=== PATIENT | male | born 1940 | race Hispanic/Latino ===

== ENCOUNTER 2018-07-15 06:41 | Day surgery (SDC) | payer MEDICARE ==
[2018-07-15 06:56] VITALS: BMI 33.8
[2018-07-15] MEDS ORDERED: Lidocaine PF 2% (5 ml) Inj (For Cardiac Arrhy) ONE (06:57)
[2018-07-15] MEDS ORDERED: Phenylephrine 10 mg/ml Inj ONE (07:17)
[2018-07-15] MEDS ORDERED: Midazolam 2 MG/2 ML VIAL ONE ×2 (07:18→07:34)
[2018-07-15] MEDS ORDERED: Iohexol 350mgl/ml 50 ML ONE (07:18)
[2018-07-15] MEDS ORDERED: Iodixanol 320 MG/ML 200 ML BOTTLE IV ONE (07:18)
[2018-07-15] MEDS ORDERED: Nitroglycerin 50mg in D5W 0 MG/0 ML BOTTLE IV ONE (07:18)
[2018-07-15] MEDS ORDERED: Iodixanol 320 MG/ML 100 ML BOTTLE IV ONE (07:18)
[2018-07-15] MEDS ORDERED: Sodium Chloride 0.9% 1,000 ML IV SCH (08:30)
[2018-07-15 08:31] VITALS: O2SAT 99
--- NOTE | 2018-07-15 10:14 | CARD ---
APPROVED REPORT Date of service: 07/15/2018 EKG Measurement Heart [id number] 140P-3 [id number] <Conclusion> Sinus bradycardia Otherwise normal ECG
[2018-07-15 13:22] VITALS: TEMP 98.4
--- NOTE | 2018-07-15 13:59 | CARDCATH ---
PROCEDURE DATE: 07/15/2018 CARDIAC CATHETERIZATION AND PCI REPORT PROCEDURES: 1. Selective left and right coronary angiography. 2. Left ventriculography. 3. Percutaneous coronary intervention of mid and distal left anterior descending coronary artery with drug-eluting stents. 4. Right femoral arteriography. 5. Angio-Seal deployment. HISTORY: This is a 77-year-old man with known coronary disease, status post remote PCI of his LAD, who has had worsening exertional chest discomfort. A stress test showed evidence of distal anterior and septal ischemia. Cardiac catheterization was advised. INDICATIONS: As above. FINDINGS: HEMODYNAMICS: The aortic pressure was 180/90 with a left ventricular pressure 180/16. Coronary anatomy. 1. The left mainstem showed some mild distal tapering. 2. The LAD had stents present in the proximal segment, which had evidence of a very mild restenosis of 20% severity. Beyond the stent, there was a 60% stenosis at the takeoff of the diagonal branch and septal cascade. 3. Beyond that there was a severe 99% stenosis in the early midportion the vessel. In the early distal segment of the vessel at the takeoff of the last large diagonal branch, there was a focal 80% stenosis. The diagonal branches as well as the distal LAD had evidence of moderate diffuse disease with multiple 50%-60% lesions present. 4. The left circumflex artery had 50% proximal stenosis and gave rise to 1 obtuse marginal branch. The distal circumflex was subtotally occluded and the distal vessel filled via [id number] collaterals. 5. The right coronary artery was large and dominant. This had mild disease in its proximal segment as well as a 50% lesion in distal segment prior to the takeoff of the manager hotel ascending artery. The PDA and posterolateral branches had evidence of moderate diffuse disease. 6. Left ventriculography: Left ventriculogram was performed with hand injection only in CHONG projection. This revealed normal wall motion with ejection fraction of 70%. There was no aortic valve gradient noted on catheter pullback. Coronary intervention: A 5000 units of intravenous heparin was administered and the ACT was greater than 300 seconds during the procedure. A 3.5 EBU guide catheter was utilized to cannulate the left coronary system and the LAD lesions were crossed successfully with the use of [place] wire. Following this, a 2.0 x 10 mm balloon was used for inflation of the distal and mid lesions, both were inflated to 6 atmospheres for 30 seconds. Following this, the balloon was withdrawn and a 2.25 x 18 mm Resolute Jesus drug-eluting stent was advanced into the early distal segment of vessel. This was inflated to 12 atmospheres for 45 seconds. There was 0% residual stenosis following intervention at the site of the lesion. The stent balloon was then removed and a 2.75 x 18 mm Resolute Jesus drug-eluting stent was advanced into the midportion of the vessel and deployed to 14 atmospheres. There did appear to be a small area of under deployment of the stent in the mid segment. Following this, the stent balloon was removed and the lesion at the septal and diagonal branch takeoff appeared somewhat hazy and worsened, this was then treated with placement of a 3.0 x 8 mm Resolute Jesus drug-eluting stent. This overlapped the 2.75 stent as well as the old stent present in the proximal segment. This was inflated to 14 atmospheres for 45 seconds. The stent balloon was then advanced into the 2.75 mm stent and inflated to 12 atmospheres at the area of under-deployment and then 2 inflations were performed at the overlapped segments of the three stents in the midportion. Inflations were performed to 14 atmospheres for 30 seconds. Follow intervention, there was 0% residual stenosis within the stented segments of the vessel. The STEFANIE grade III flow was present before and after the intervention. Right femoral arteriography: A right femoral arteriogram was performed in the CHONG projection. This revealed no evidence of significant disease in the appropriate level of arterial puncture. The puncture site was then closed with deployment of an Angio-Seal device. CONCLUSION: 1. Severe mid and distal LAD disease. 2. Patent proximal LAD stent. 3. Moderate to severe diffuse distal disease in the LAD, left circumflex and RCA. 4. Normal LV systolic function. RECOMMENDATIONS: Aspirin, Plavix therapy will be continued for at least 1 year. Beta-celine therapy will be continue pérez well. His statin will be switched to intensity dosing in an attempt to help stabilize his distal plaque. Aggressive risk factor control and exercise were encouraged. Ankit Garnett MD [facility]
[2018-07-15 15:12] VITALS: BP 145/69; PULSE 62; RESP 19
== END 2018-07-15 15:20 | disposition home or self-care (01) ==
LOC: SDSVAS 06:41 → 2RSO 08:29 → SDSVAS 15:20
PROVIDERS: ATTEND Internal Medicine Cardiovascular Disease
DX: I25.10 Atherosclerotic heart disease of native coronary artery without angina pectoris (principal); I10 Essential (primary) hypertension; E11.9 Type 2 diabetes mellitus without complications; Z95.5 Presence of coronary angioplasty implant and graft; Z79.84 Long term (current) use of oral hypoglycemic drugs; Z79.82 Long term (current) use of aspirin
CPT/HCPCS: 36415; 85175; 86850; 86900; 93005; 93458; 99152; 99153; C1725; C1760; C1769 ×2; C1874 ×3; C1887; C2629; C9600; J0360; J1644 ×2; J2250; J3010; J7030; Q9966